=== PATIENT | female | born 1990 | race Hispanic/Latino ===

== ENCOUNTER → 2017-01-14 | Outpatient (CLI) | payer OTHER ==
--- NOTE | 2017-01-14 17:41 | REP ---
Focused right breast sonography: History: 26 real female, long history of right breast mass status post biopsy in 2008. Reported benign by the patient. Increase in size in this lesion over the past year by history. 2 cm mass palpated on clinician breast exam. No comparison imaging. Sonographic findings: The right breast is scanned from four to five o'clock in the area of the palpable lump. At 4 o'clock there is a hypoechoic nodule measuring 2.6 x 1.1 x 2.1 cm located 2.3 cm from the nipple. This is homogeneous with a well defined back wall. No observable Doppler flow. At 5 o'clock, there is a 2.5 x 0.7 x 2.2 cm hypoechoic oval shaped lesion located 1.5 cm from the nipple. No observable interior flow. Well defined back wall. Both of these have their long axis parallel to the skin. Heterogeneous fibroglandular background echotexture is seen. Impression: There are two hypoechoic nodules in the right breast at 4 o'clock and 5 o'clock. These are compatible with, although not specific for, fibroadenoma. If ultrasound-guided needle biopsy or excisional biopsy is not desired, clinical follow-up is recommended. Signed by Tomy Appiah MD 01/15/2017 02:09 P
== END ==
LOC: M RAD 13:44
PROVIDERS: ATTEND Family Medicine
DX: N60.01 Solitary cyst of right breast (principal)